=== PATIENT | male | born 1990 | race Caucasian/White ===

== ENCOUNTER 2018-02-15 12:53 | Emergency (ER) | payer SELFPAY ==
[2018-02-15 13:31] VITALS: BP 107/66
--- NOTE | 2018-02-15 13:50 | UC ---
Throat Pain/Nasal Jaswinder HPI - HPI Summary HPI Summary: Sore throat, upset stomach body aches fatigue and rash for a few days - History of Current Complaint Chief Complaint: UCRash Stated Complaint: RASH HANDS/FEET, UPSET STOMACH Time Seen by Provider: 02/15/18 12:57 Hx Obtained From: Patient Onset/Duration: Gradual Onset, Lasting Days Pain Intensity: 5 Pain Scale Used: 0-10 Numeric Cough: None Associated Signs & Symptoms: Positive: Rash - Allergies/Home Medications Allergies/Adverse Reactions: Allergies Allergy/AdvReac Type Severity Reaction Status Date / Time Penicillins Allergy Hives Verified 02/15/18 13:28 Home Medications: Home Medications Ibuprofen TAB* [Motrin TAB* 800 MG] 800 mg PO Q6H PRN 02/15/18 [History Confirmed 02/15/18] PMH/Surg Hx/FS Hx/Imm Hx Previously Healthy: Yes - Surgical History Surgical History: None - Family History Known Family History: Positive: None - Social History Occupation: Employed Full-time Lives: With Family Alcohol Use: Daily Alcohol Amount: 1-2 drinks daily Substance Use Type: Marijuana Substance Use Comment - Amount & Last Used: daily Smoking Status (MU): Heavy Every Day Tobacco Smoker Type: Cigarettes Amount Used/How Often: 75% PPD Have You Smoked in the Last Year: Yes Review of Systems Constitutional: Fever, Chills, Fatigue Skin: Negative Eyes: Negative ENT: Sore Throat Respiratory: Negative Cardiovascular: Negative Gastrointestinal: Negative Genitourinary: Negative Motor: Negative Neurovascular: Negative Musculoskeletal: Myalgia Neurological: Negative Psychological: Negative Is Patient Immunocompromised?: No All Other Systems Reviewed And Are Negative: Yes Physical Exam Triage Information Reviewed: Yes Appearance: Well-Appearing, Ill-Appearing - mild, Thin Vital Signs: Initial Vital Signs Temp 98.3 F 02/15/18 13:22 Pulse 54 02/15/18 13:22 Resp 13 02/15/18 13:22 BP 107/66 02/15/18 13:22 Pulse Ox 100 02/15/18 13:22 Vital Signs Reviewed: Yes Eye Exam: Normal Eyes: Positive: Conjunctiva Clear ENT Exam: Normal ENT: Positive: Normal ENT inspection, Hearing grossly normal, Pharyngeal erythema, TMs normal, Uvula midline. Negative: Nasal congestion, Tonsillar swelling, Tonsillar exudate, Trismus, Muffled voice, Hoarse voice, Dental tenderness, Sinus tenderness Dental Exam: Normal Neck exam: Normal Neck: Positive: Supple, Nontender, No Lymphadenopathy Respiratory Exam: Normal Respiratory: Positive: Chest non-tender, Lungs clear, Normal breath sounds, No respiratory distress, No accessory muscle use Cardiovascular Exam: Normal Cardiovascular: Positive: RRR, No Murmur, Pulses Normal, Brisk Capillary Refill Abdominal Exam: Normal Abdomen Description: Positive: Nontender, No Organomegaly, Soft. Negative: CVA Tenderness (R), CVA Tenderness (L) Musculoskeletal Exam: Normal Musculoskeletal: Positive: Strength Intact, ROM Intact, No Edema Neurological Exam: Normal Neurological: Positive: Alert, Muscle Tone Normal Psychological Exam: Normal Skin Exam: Normal Skin: Positive: Other - hand and feet Diagnostics - Laboratory Diagnostic Studies Completed/Ordered: RST+ Throat Pain/Nasal Course/Dx - Course Assessment/Plan: zithroam, ibuprofen increase fluids rest follow with pcp prn - Differential Dx/Diagnosis Provider Diagnoses: Strep Pharyngitis Discharge - Sign-Out/Discharge Documenting (check all that apply): Discharge/Admit/Transfer - Discharge Plan Condition: Stable Disposition: HOME Prescriptions: Azithromycin TAB* [Zithromax TAB (Z-LAURE) 250 mg #6 tabs] 500 mg PO DAILY #10 tab Patient Education Materials: Pharyngitis (ED), Strep Throat (DC) Forms: *Work Release Referrals: [facility] [Outside] - If Needed LINO Casas [Medical Doctor] - If Needed - Billing Disposition and Condition Condition: STABLE Disposition: Home
== END 2018-02-15 14:04 | disposition home or self-care (01) ==
LOC: UCCORT 12:53
DX: J02.0 Streptococcal pharyngitis (principal); K30 Functional dyspepsia; R53.83 Other fatigue; R21 Rash and other nonspecific skin eruption; F17.210 Nicotine dependence, cigarettes, uncomplicated; Z88.0 Allergy status to penicillin
CPT/HCPCS: 81003; 87651; 99202; G0463

== ENCOUNTER 2018-02-18 17:19 | Emergency (ER) | payer MEDICAID ==
[2018-02-18] MEDS ORDERED: Ibuprofen TAB* 600 MG PO ONE (18:41)
[2018-02-18 18:56] LABS: ABS Basophils 0 10^3/ul (0-0.2); ABS Eosinophils 0.1 10^3/ul (0-0.6); ABS Lymphocytes 1.1 10^3/ul (1.0-4.8); ABS Monocytes 1.2 10^3/ul (0-0.8); ABS Neutrophils 8.5 10^3/ul (1.5-7.7); ABS Nucleated RBC 0 10^3/ul; Eosinophil % 1.1 % (0-6); Hematocrit 39 % (42-52); Hemoglobin 13.8 g/dl (14.0-18.0); Lymphocyte % 9.9 % (25-47); Mean Corpuscular HGB Conc 36 g/dl (31-36); Mean Corpuscular Hemoglobin 33 pg (27-31); Mean Corpuscular Volume 91 fL (80-94); Nucleated Red Blood Cells % 0; Platelet Count 192 10^3/ul (150-450); Red Blood Count 4.24 10^6/ul (4.00-5.40); Red Cell Distribution Width 12 % (10.5-15)
[2018-02-18 19:18] LABS: EGFR Non-African American 126.9 (>60)
[2018-02-18 19:24] LABS: Urine Appearance Clear; Urine Blood Negative (Negative); Urine Color Yellow; Urine Ketones Negative (Negative); Urine Protein Negative (Negative); Urine Specific Gravity 1.008 (1.010-1.030); Urine Urobilinogen Positive (Negative)
--- NOTE | 2018-02-18 20:47 | ED ---
Lower Extremity - HPI Summary HPI Summary: Complains of bilateral lower extremity pain, bilateral lower back pain, bilateral neck pain, chills, sub fever, gen weakness 4 days. Bilateral leg lower extremity pain is worse with movement and walking, improves with rest. Pain worst in bilateral knees and calves. Patient states he is unable to walk due to pain. Denies trauma, cough, SOB, CP, N/V/D, abdominal pain, change in urinary BM. Patient tested positive for strep 4 days ago at PCP, was put on Z- Kike. At that time patient was complaining of rash on hands and feet, sore throat, right inguinal pain. Sore throat, rash, inguinal pain has resolved, but patient states he started having body pain the day he saw his PCP. Medical history is none. Surgical history is none. Positive smoker positive EtOH, denies illegal drug use except for marijuana. Denies history of blood clots, recent surgery or trauma. - History of Current Complaint Chief Complaint: EDGeneral Stated Complaint: FEVER/SORE THROAT/PAIN Time Seen by Provider: 02/18/18 18:20 Hx Obtained From: Patient, Family/Physical Medicine Specialist Onset of Pain: Days Onset/Duration: Days Severity Initially: Mild Severity Currently: Moderate Pain Intensity: 8 Pain Scale Used: 0-10 Numeric Timing: Intermittent Location: Is Diffuse Character Of Pain: Aching Associated Signs And Symptoms: Positive: Fever, Weakness Aggravating Factor(s): Ambulation, Movement, Weight Bearing Alleviating Factor(s): Rest - Risk Factors Gout Risk Factors: Negative DVT Risk Factors: Smoking - Allergies/Home Medications Allergies/Adverse Reactions: Allergies Allergy/AdvReac Type Severity Reaction Status Date / Time Penicillins Allergy Hives Verified 02/18/18 17:24 PMH/Surg Hx/FS Hx/Imm Hx Endocrine/Hematology History: Reports: Hx Anticoagulant Therapy, Hx Blood Disorders, Hx Blood Transfusions, Hx Bone Marrow Disease, Hx Diabetes, Hx Systemic Lupus Erythematosus, Hx Sickle Cell Disease, Hx Thyroid Disease, Hx Anemia, Hx Unexplained Bleeding, Hx Coagulopothy, Autoimmune Disease, Other Endocrine/Hematological Disorders Cardiovascular History: Denies: Hx Aneurysm, Hx Angina, Hx Angioplasty, Hx Atrial Fibrillation, Hx Auto Implanted Cardiovert Defib, Hx Cardiac Arrest, Hx Cardiomegaly, Hx Congenital Heart Disease, Hx Congestive Heart Failure, Hx Coronary Artery Disease, Hx Deep Vein Thrombosis, Hx Embolism, Hx Hypercholesterolemia, Hx Hypotension, Hx Hypertension, Hx Myocardial Infarction, Hx Pacemaker/ICD, Hx Peripheral Vascular Disease, Hx Rheumatic Fever, Hx Syncope, Hx Valvular Heart Disease, Hx Supraventricular Ventricular Tachycardia, Other Cardiovascular Problems/Disorders Sensory History: Denies: Hx Cataracts, Hx Contacts or Glasses, Hx Eye Injury, Hx Eye Prosthesis, Hx Glaucoma, Hx Legally Blind, Hx Macular Degeneration, Hx Vision Problem, Hx Deafness, Hx Hearing Aid, Hx Hearing Problem, Hx Auditory Problems, Other Sensory Impairments Infectious Disease History: No Infectious Disease History: Denies: Traveled Outside the [place] in Last 30 Days - Family History Known Family History: Positive: None - Social History Alcohol Use: Daily Alcohol Amount: 1-2 drinks daily Substance Use Type: Reports: Marijuana Substance Use Comment - Amount & Last Used: daily Hx Tobacco Use: Yes Smoking Status (MU): Heavy Every Day Tobacco Smoker Type: Cigarettes Amount Used/How Often: 75% PPD Have You Smoked in the Last Year: Yes Review of Systems Positive: Fever, Chills Eyes: Negative ENT: Negative Cardiovascular: Negative Respiratory: Negative Gastrointestinal: Negative Genitourinary: Negative Positive: Arthralgia, Myalgia Skin: Negative Positive: Weakness Psychological: Normal All Other Systems Reviewed And Are Negative: Yes Physical Exam - Summary Physical Exam Summary: Patient able to move flex and extend bilateral ankles bilateral knees and bilateral hips. States pain with flexion of left knee, and right hip. Left lower extremity and mildly tender to palpation. Bilateral lower back nontender to palpation, no deformity, swelling ecchymosis noted. No redness, swelling, deformity, erythema, extra warmth noted to joints of bilateral lower extremities PMS intact bilaterally negative Kernig's, negative Brudzinski. Full range of motion of neck without pain. Mild tenderness to palpation of paraspinal muscles at C-spine and T-spine and trapezius bilaterally Triage Information Reviewed: Yes Vital Signs On Initial Exam: Initial Vitals Temp Pulse Resp BP Pulse Ox 98.4 F 85 13 113/65 98 02/18/18 17:21 02/18/18 17:21 02/18/18 17:21 02/18/18 17:21 02/18/18 17:21 Vital Signs Reviewed: Yes Appearance: Positive: Well-Appearing Skin: Positive: Warm Head/Face: Positive: Normal Head/Face Inspection Eyes: Positive: Normal Neck: Positive: Supple Respiratory/Lung Sounds: Positive: Clear to Auscultation Cardiovascular: Positive: Normal Abdomen Description: Positive: Nontender Musculoskeletal: Negative: Ned Sign Left, Ned Sign Right, Edema Left, Edema Right Neurological: Positive: Normal Psychiatric: Positive: Normal AVPU Assessment: Alert - [place] Coma Scale Best Eye Response: 4 - Spontaneous Best Motor Response: 6 - Obeys Commands Best Verbal Response: 5 - Oriented Coma Scale Total: 15 Diagnostics - Vital Signs Vital Signs Temp Pulse Resp BP Pulse Ox 02/18/18 17:21 98.4 F 85 13 113/65 98 - Laboratory Lab Results: Lab Results 02/18/18 02/18/18 02/18/18 Range/Units 18:49 18:49 18:49 WBC 11.0 H (3.5-10.8) 10^3/ul RBC 4.24 (4.00-5.40) 10^6/ul Hgb 13.8 L (14.0-18.0) g/dl Hct 39 L (42-52) % MCV 91 (80-94) fL MCH 33 H (27-31) pg MCHC 36 (31-36) g/dl RDW 12 (10.5-15) % Plt Count 192 (150-450) 10^3/ul MPV 8.0 (7.4-10.4) um3 Neut % (Auto) 77.7 (38-83) % Lymph % (Auto) 9.9 L (25-47) % Nelson % (Auto) 10.9 H (0-7) % Eos % (Auto) 1.1 (0-6) % Baso % (Auto) 0.4 (0-2) % Absolute Neuts (auto) 8.5 H (1.5-7.7) 10^3/ul Absolute Lymphs (auto) 1.1 (1.0-4.8) 10^3/ul Absolute Monos (auto) 1.2 H (0-0.8) 10^3/ul Absolute Eos (auto) 0.1 (0-0.6) 10^3/ul Absolute Basos (auto) 0 (0-0.2) 10^3/ul Absolute Nucleated RBC 0 10^3/ul Nucleated RBC % 0 ESR 42 H (0-14) mm/Hr Sodium 135 (135-145) mmol/L Potassium 3.7 (3.5-5.0) mmol/L Chloride 99 L (101-111) mmol/L Carbon Dioxide 28 (22-32) mmol/L Anion Gap 8 (2-11) mmol/L BUN 8 (6-24) mg/dL Creatinine 0.75 (0.67-1.17) mg/dL Est GFR ( Amer) 163.2 (>60) Est GFR (Non-Af Amer) 126.9 (>60) BUN/Creatinine Ratio 10.7 (8-20) Glucose 98 (70-100) mg/dL Lactic Acid 0.8 (0.5-2.0) mmol/L Calcium 9.2 (8.6-10.3) mg/dL Total Bilirubin 1.40 H (0.2-1.0) mg/dL AST 10 L (13-39) U/L ALT 7 (7-52) U/L Alkaline Phosphatase 48 (34-104) U/L C-Reactive Protein 97.94 H (< 5.00) mg/L Total Protein 7.1 (6.4-8.9) g/dL Albumin 4.2 (3.2-5.2) g/dL Globulin 2.9 (2-4) g/dL Albumin/Globulin Ratio 1.4 (1-3) Urine Color Urine Appearance Urine pH (5-9) Ur Specific Sharps (1.010-1.030) Urine Protein (Negative) Urine Ketones (Negative) Urine Blood (Negative) Urine Nitrate (Negative) Urine Bilirubin (Negative) Urine Urobilinogen (Negative) Ur Leukocyte Esterase (Negative) Urine Glucose (Negative) Urine Opiates Screen (None Detect) Ur Barbiturates Screen (None Detect) Ur Phencyclidine Scrn (None Detect) Ur Amphetamines Screen (None Detect) U Benzodiazepines Scrn (None Detect) Urine Cocaine Screen (None Detect) U Cannabinoids Screen (None Detect) Serum Alcohol < 10 (<10) mg/dL Monoscreen Negative (Negative) 02/18/18 02/18/18 Range/Units 19:13 19:13 WBC (3.5-10.8) 10^3/ul RBC (4.00-5.40) 10^6/ul Hgb (14.0-18.0) g/dl Hct (42-52) % MCV (80-94) fL MCH (27-31) pg MCHC (31-36) g/dl RDW (10.5-15) % Plt Count (150-450) 10^3/ul MPV (7.4-10.4) um3 Neut % (Auto) (38-83) % Lymph % (Auto) (25-47) % Nelson % (Auto) (0-7) % Eos % (Auto) (0-6) % Baso % (Auto) (0-2) % Absolute Neuts (auto) (1.5-7.7) 10^3/ul Absolute Lymphs (auto) (1.0-4.8) 10^3/ul Absolute Monos (auto) (0-0.8) 10^3/ul Absolute Eos (auto) (0-0.6) 10^3/ul Absolute Basos (auto) (0-0.2) 10^3/ul Absolute Nucleated RBC 10^3/ul Nucleated RBC % ESR (0-14) mm/Hr Sodium (135-145) mmol/L Potassium (3.5-5.0) mmol/L Chloride (101-111) mmol/L Carbon Dioxide (22-32) mmol/L Anion Gap (2-11) mmol/L BUN (6-24) mg/dL Creatinine (0.67-1.17) mg/dL Est GFR ( Amer) (>60) Est GFR (Non-Af Amer) (>60) BUN/Creatinine Ratio (8-20) Glucose (70-100) mg/dL Lactic Acid (0.5-2.0) mmol/L Calcium (8.6-10.3) mg/dL Total Bilirubin (0.2-1.0) mg/dL AST (13-39) U/L ALT (7-52) U/L Alkaline Phosphatase (34-104) U/L C-Reactive Protein (< 5.00) mg/L Total Protein (6.4-8.9) g/dL Albumin (3.2-5.2) g/dL Globulin (2-4) g/dL Albumin/Globulin Ratio (1-3) Urine Color Yellow Urine Appearance Clear Urine pH 6.0 (5-9) Ur Specific Sharps 1.008 L (1.010-1.030) Urine Protein Negative (Negative) Urine Ketones Negative (Negative) Urine Blood Negative (Negative) Urine Nitrate Negative (Negative) Urine Bilirubin Negative (Negative) Urine Urobilinogen Positive A (Negative) Ur Leukocyte Esterase Negative (Negative) Urine Glucose Negative (Negative) Urine Opiates Screen None detected (None Detect) Ur Barbiturates Screen None detected (None Detect) Ur Phencyclidine Scrn None detected (None Detect) Ur Amphetamines Screen None detected (None Detect) U Benzodiazepines Scrn None detected (None Detect) Urine Cocaine Screen None detected (None Detect) U Cannabinoids Screen Presumptive positive A (None Detect) Serum Alcohol (<10) mg/dL Monoscreen (Negative) Result Diagrams: 02/18/18 18:49 02/18/18 18:49 Lab Statement: Any lab studies that have been ordered have been reviewed, and results considered in the medical decision making process. Lower Extremity Course/Dx - Course Course Of Treatment: Complains of bilateral lower extremity pain, bilateral lower back pain, bilateral neck pain, chills, sub fever, gen weakness 4 days. Bilateral leg lower extremity pain is worse with movement and walking, improves with rest. Pain worst in bilateral knees and calves. Patient states he is unable to walk due to pain. Denies trauma, cough, SOB, CP, N/V/D, abdominal pain , change in urinary BM. Patient tested positive for strep 4 days ago at PCP, was put on Z-Kike. At that time patient was complaining of rash on hands and feet, sore throat, right inguinal pain. Sore throat, rash, inguinal pain has resolved, but patient states he started having body pain the day he saw his PCP. Medical history is none. Surgical history is none. Positive smoker positive EtOH, denies illegal drug use except for marijuana. Denies history of blood clots, recent surgery or trauma. Patient able to move flex and extend bilateral ankles bilateral knees and bilateral hips. States pain with flexion of left knee, and right hip. Left lower extremity and mildly tender to palpation. Bilateral lower back nontender to palpation, no deformity, swelling ecchymosis noted. No redness, swelling, deformity, erythema, extra warmth noted to joints of bilateral lower extremities PMS intact bilaterally negative Kernig's, negative Brudzinski. Full range of motion of neck without pain. Mild tenderness to palpation of paraspinal muscles at C-spine and T-spine and trapezius bilaterally. Discussed patient with Dr. Kam. Vital signs within normal limits and stable. Labs essentially unremarkable. Symptoms consistent with viral syndrome. Patient has recently been on azithromycin for positive strep throat, and strep throat symptoms have resolved. Follow-up with primary care. Rest. Tylenol and ibuprofen for bodyaches and fever control. - Diagnoses Provider Diagnoses: Viral syndrome Discharge - Sign-Out/Discharge Documenting (check all that apply): Discharge/Admit/Transfer - Discharge Plan Condition: Stable Disposition: HOME Patient Education Materials: Viral Syndrome (ED) Referrals: No Primary Care Phys,NOPCP [Primary Care Provider] - [facility] [Outside] Additional Instructions: Take Tylenol and/or ibuprofen for body aches and fever control. Rest. Drink plenty of fluids. Follow-up with primary care. Return to the ED for any concerning symptoms including persistent fever, nausea and vomiting, worsening symptoms. - Billing Disposition and Condition Condition: STABLE Disposition: Home
[2018-02-18 20:56] VITALS: BP 110/76
== END 2018-02-18 21:13 | disposition home or self-care (01) ==
LOC: ED 17:19
DX: B34.9 Viral infection, unspecified (principal); M79.605 Pain in left leg; M79.604 Pain in right leg; M54.5 Low back pain; M54.2 Cervicalgia; Z88.0 Allergy status to penicillin; F17.210 Nicotine dependence, cigarettes, uncomplicated
CPT/HCPCS: 36415; 80053; 80307; 80320; 81003; 83605; 85025; 85652; 86140; 86308; 86664; 86665; 99283; A9270-GY; G0480